=== PATIENT | male | born 1985 | race Caucasian/White ===

== ENCOUNTER 2016-09-07 20:58 | Emergency (ER) | payer MEDICAID ==
--- NOTE | 2016-09-07 21:09 | UCPHY ---
H & P Patient Type: Established HPI/ROS: HPI CHIEF COMPLAINT: Bug Bites HISTORY OF PRESENT ILLNESS: This patient otherwise healthy 31-year-old male denies any significant medical history presents urgent care with EKG read blotchiness raised lesions around his ankles and legs consistent with bed bug bites. No evidence scabies. He presents urgent care by walking he tells me was walking by here and saw the place place and decided to check in. He denies fever. Past Medical History: No medical history Past Surgical History: No surgical history Social History: Homeless, denies use of drugs alcohol tobacco products Family History: noncontributory ROS REVIEW OF SYSTEMS: A comprehensive 10 point review of systems is otherwise negative aside from elements mentioned in the history of present illness. Exam Constitutional triage nursing summary reviewed, vital signs reviewed, awake/ alert. Eyes normal conjunctivae and sclera, EOMI, PERRLA. HENT normal inspection, atraumatic, moist mucus membranes, no epistaxis, neck supple/ no meningismus, no raccoon eyes. Respiratory clear to auscultation bilaterally, normal breath sounds, no respiratory distress, no wheezing. Cardiovascular rate normal, regular rhythm, no murmur, no edema, distal pulses normal. Gastrointestinal soft, non-tender, no rebound, no guarding, normal bowel sounds, no distension, no pulsatile mass. Genitourinary no CVA tenderness. Musculoskeletal no midline vertebral tenderness, full range of motion, no calf swelling, no tenderness of extremities, no meningismus, good pulses, neurovascularly intact. Skin blotchy erythema raised lesions consistent with bed bug bites around his ankle and legs, no petechiae no purpura no cellulitis no abscess pink, warm, & dry, no rash, skin atraumatic. Neurologic awake, alert and oriented x 3, AAOx3, moves all 4 extremities equally, motor intact, sensory intact, CN II-XII intact, normal cerebellar, normal vision, normal speech. Psychiatric normal mood/affect. Heme/Lymph/Immune no lymphadenopathy. Differential Diagnosis: Includes but is not limited to bed bug bites, scabies, cellulitis Medical Decision Making: Plan for this patient is to have him wash all his clothes and belongings in very hot water as he appears to have bed bug bites. He understands to not itch these, take Benadryl for itching. Source: Patient - Personal History Tetanus Vaccine Date: 2007 - Medical/Surgical History Hx Asthma: No Hx Chronic Respiratory Disease: No Hx Diabetes: No Hx Cardiac Disease: No Hx Renal Disease: No Hx Cirrhosis: No Hx Alcoholism: No Hx HIV/AIDS: No Hx Splenectomy or Spleen Trauma: No Other PMH: l elbow surgery (for broken arm at age 8) - Family History Significant Family History: No pertinent family hx - Social History Smoking Status: Current every day smoker Constitutional: Initial Vital Signs Temperature (C) 37.2 C 09/07/16 21:10 Heart Rate 110 H 09/07/16 21:10 Respiratory Rate 18 09/07/16 21:10 Blood Pressure 124/66 H 09/07/16 21:10 O2 Sat (%) 95 09/07/16 21:10 O2 Delivery Mode Room Air Allergies/Adverse Reactions: No Known Allergies Allergy (Verified 01/09/14 11:38) Home Medications: Medication Instructions Recorded Oxycodone Ir [Oxy Ir 5 mg (RX)] 10 - 15 mg PO Q4 PRN #60 tab 01/11/14 oxyCODONE CR [Oxycontin] 20 mg PO BID #30 tab 01/11/14 oxyCODONE/APAP 5/325 [Percocet 1 - 2 tab PO Q4-6PRN PRN #15 tab 01/11/14 5/325] traMADol [Ultram 50 mg (*)] 50 mg PO Q4 #30 tab 01/11/14 Departure - Departure Disposition: Home, Routine, Self-Care Clinical Impression: Bed bug bite Qualifiers: Encounter type: initial encounter Qualified Code(s): W57.XXXA - Bitten or stung by nonvenomous insect and other nonvenomous arthropods, initial encounter Condition: Good Instructions: Bed Bugs (ED) Additional Instructions: 1.Please wash all her clothes in very hot water. 2. return to the urgent care or emergency room if you have any worsening symptoms questions or concerns. - PQRS PQRS Measurement: n/a
[2016-09-07 21:13] VITALS: BP 124/66; PULSE 110; RESP 18; TEMP 99; O2SAT 95
== END 2016-09-07 21:39 | disposition home or self-care (01) ==
LOC: CED 20:58
DX: S81.859A Open bite, unspecified lower leg, initial encounter (principal); W57.XXXA Bitten or stung by nonvenomous insect and other nonvenomous arthropods, initial encounter; F17.200 Nicotine dependence, unspecified, uncomplicated; Z59.0 Homelessness
CPT/HCPCS: 99214-PO; G0463-PO

== ENCOUNTER 2017-10-13 17:51 | Emergency (ER) | payer MEDICAID ==
[2017-10-13 18:01] VITALS: BP 124/84
[2017-10-13] MEDS ORDERED: LET GEL TOPICAL 1 EA SYR TP ONE (18:21)
[2017-10-13] MEDS ORDERED: DOXYCYCLINE 100 MG PREPACK#2 BTL TAKEHOME ONE (18:21)
--- NOTE | 2017-10-13 18:32 | EDPHY ---
H & P Time Seen by Provider: 10/13/17 17:59 HPI/ROS: 32-year-old male presents complaining of several days to possibly several weeks of a lump in his left neck, he states it has been there for a long time and originally was more like a fatty lump. He states now it is swollen and tender. He denies fevers chills he denies drainage from that area he denies neck pain. He denies difficulty swallowing Review of systems As per HPI General no fever no chills no weakness HEENT no eye pain no eye discharge. No eye redness, no sore throat Respiratory no cough, no shortness of breath Cardiac no chest pain, no peripheral edema GI no abdominal pain, no diarrhea, no constipation, no nausea, no vomiting no flank pain, no hematuria, no dysuria Musculoskeletal no myalgias, no joint pain Heme no easy bruising, no easy bleeding Endo no polyuria, no polydipsia Skin positive neck mass/rash, no pruritus Neuro no syncope, no dizziness, no headaches Psych is no suicidal ideation, no homicidal ideation Past Medical/Surgical History: Noncontributory Social History: Denies alcohol or drug use Smoking Status: Current every day smoker Physical Exam: 32-year-old male alert and oriented no acute distress nontoxic appearance, afebrile Atraumatic normocephalic Oropharynx no exudate no erythema no swelling Neck supple At angle of mandible left anterior neck there is a 1.5 x 1.5 cm mass, fluctuance , overlying erythema Minimal tenderness Lungs clear to auscultation Heart regular rate and rhythm Skin no rash Constitutional: Initial Vital Signs Temperature (C) 36.8 C 10/13/17 17:55 Heart Rate 98 10/13/17 17:55 Respiratory Rate 16 10/13/17 17:55 Blood Pressure 124/84 H 10/13/17 17:55 O2 Sat (%) 95 10/13/17 17:55 O2 Delivery Mode Room Air Allergies/Adverse Reactions: No Known Allergies Allergy (Verified 10/13/17 17:55) Home Medications: Medication Instructions Recorded Doxycycline Hyclate 100 mg PO BID #20 tab 10/13/17 Medical Decision Making ED Course/Re-evaluation: pt evaluated for lump on neck. Imp Abscess in anterior cervical chain, per patient had a fatty mass there, so this is possibly and infected lipoma It feels fluctuant not firm , so doubt lymph node. Pt refusing having the fluctuant area "needled to check for pus" Requests that he try antibiotics first. Plan dc home with doxycycline, try warm compresses Return if worsens Differential Diagnosis: Differential diagnosis considered but not limited to: A lipoma, infected lipoma, sebaceous cyst, infected sebaceous cyst, abscess, lymph node, infected lymph node - Data Points Medications Given: Discontinued Medications Doxycycline Hyclate (Vibramycin 100 Mg Prepack#2) 1 btl TAKEHOME EDNOW ONE Stop: 10/13/17 18:22 Last Admin: 10/13/17 18:45 Dose: 1 btl Tetracaine/Epinephrine/Lidocaine (Let Gel Topical) 1 ea TP EDNOW ONE Stop: 10/13/17 18:22 Last Admin: 10/13/17 18:39 Dose: Not Given Departure - Departure Disposition: Home, Routine, Self-Care Clinical Impression: Mass in neck Condition: Good Instructions: Doxycycline (By mouth), Abscess (ED) Additional Instructions: You may use warm compresses and the anitbiotic, if not improving , increasing in size or running a fever , please go to a larger medical center where they will have a surgeon to address this sensitive area. Referrals: NONE *PRIMARY CARE P,. [Primary Care Provider] - As per Instructions Prescriptions: Doxycycline Hyclate 100 mg PO BID #20 tab
== END 2017-10-13 18:40 | disposition home or self-care (01) ==
LOC: CED 17:51
DX: R22.1 Localized swelling, mass and lump, neck (principal); F17.200 Nicotine dependence, unspecified, uncomplicated